=== PATIENT | female | born 1955 | race Caucasian/White ===

== ENCOUNTER → 2017-09-21 | Outpatient (CLI) | payer OTHER ==
[~2017-09-21] MED LIST: ANASPAZ0.125 MG OR; ANTIOXIDANT FO1 EACH PO; ASPIR 8181 MG PO; ASPIRIN EC325 MG PO; BELBUCA75 MCG BC; CARVEDILOL12.5 MG OR; CARVEDILOL12.5 MG PO; CELEBREX 200 M200 MG PO; COLACE 100 MG100 MG PO; COMBIVENT INH; COZAAR 25 MG TA25 M2 PO; CREON DR 36,001 EACH PO; DIOVAN HCT 1601 EACH OR; DULCOLAX; DULCOLAX5 MG PO; FLEXERIL PO; FLONASE 0.05%50 MCG NASAL; GILPIZIDE; HUMALOG100 UNIT/2 SUBQ; HYDROCODON-ACE1 EACH PO; HYZAAR 50-12.51 TAB PO; JANUVIA100 MG OR; KLOR-CON OR; LANTUS SOL100 UNIT/1 SUBQ; LANTUSSOLASTAR SQ; LASIX 20 MG TAB20 MG OR; LASIX 20 MG TAB20 MG PO; LOPERAMIDE 2 MG2 M1 PO; LORAZEPAM 1 MG T1 MG PO; LORAZEPAM 2MG TA2 M1 PO; LORTAB 5-325 M1 EACH PO; METFORMIN HCL500 MG PO; MINOCYCLINE HC100 M2 PO; MORPHINE SULFAT15 M1 OR; MORPHINE SULFAT15 M3 PO; MORPHINE SULFAT15 M4 PO; MS CONTIN15 MG PO; MYCOBUTIN150 MG PO; NASONEX17 GM IH; NASONEX17 GM NS; NEURONTIN 300300 M1 PO; NEURONTIN600 MG OR; NEURONTIN600 MG PO; OXYCODONE HCL 55 MG PO; PAROXETINE HCL40 MG PO; PAXIL20 MG PO; PAXIL40 MG OR; POTASSIUM GLUCONATE PO; POTASSIUM20 PO; PROTONIX40 M2 OR; PROTONIX40 M2 PO; SAM-E200 MG PO; SINGULAIR 10 MG10 M1 OR; SINGULAIR 10 MG10 M1 PO; SYMBICORT160 MCG/4.; SYMBICORT160 MCG/4. INH; TIZANIDINE HCL4 MG PO; TOUJEO SOL300 UNIT/1 SUBQ; VITAMIN D 5050000 I1; VITAMIN D35000 UNIT PO; WELLBUTRIN 100100 MG PO; WELLBUTRIN SR150 MG OR; XARELTO10 MG PO; ZENPEP DR 10,01 EACH OR; ZENPEP DR 20,01 EACH OR; ZENPEP DR 5,001 EACH PO; ZOCOR 20 MG TAB20 M1 OR; [UNRECOGNIZED DRUG - OTHER] SQ
--- NOTE | 2017-09-29 11:16 | SLEEP ---
[address] [address] SLEEP STUDY REPORT Name: SHELBY COTTER Room: [facility]#: [id number] Admission: 09/21/17 Attend Phys: Tony Barbosa MD Discharge: Date of : 57 Report #: [id number] THIS REPORT FOR: //name// CC: Tony Dodge This study has been reviewed in its entirety by a board certified sleep specialist DATE OF SERVICE: 09/21/2017 TYPE OF STUDY: Split night study. REFERRING PHYSICIAN: Tony Barbosa MD INDICATION: Known obstructive sleep apnea. METHOD: The following parameters were monitored: Frontal, central and occipital EEG; electro-oculogram; submentalis EMG; nasal and oral airflow; anterior tibialis EMG, body position and electrocardiogram. Additionally, thoracic and abdominal movements were recorded by inductance plethysmography. Oxygen saturation was monitored using pulse oximeter. The tracing was scored using 30-second epochs. Hypopneas were scored using the 4% desaturation criteria. This was a split night study. DIAGNOSTIC PORTION OF THE STUDY: Total recording time was 158 minutes. Total sleep time was 72 minutes. Sleep efficiency was low at 45.9%. SLEEP STAGING: During the diagnostic portion of the study, no REM or N3 was recorded. 69.7% total sleep time was in N1 and 30.3% in stage 2. During the diagnostic portion of the study, the patient had 39 hypopneas. No apneas with overall apnea-hypopnea index of 32.3. The average heart rate was 78.6 minutes. No arrhythmias were reported. The limb movement index was 165.5. The average O2 saturation during the diagnostic portion of the study was 93% with the lowest O2 saturation reported to be 86%. TITRATION PORTION OF THE STUDY: During the titration portion of the study, the patient was titrated on a pressure 5, 7, 9, 11, 12, 13, 14, 15, 16 and 18 cm of water. At level of 18 cm of water, the patient was captured briefly during supine REM sleep. The overall apnea-hypopnea index at this level was 1.3. The lowest O2 saturation recorded was 87%. IMPRESSION: Severe obstructive sleep apnea with apnea-hypopnea index of 32.2, [place] [address] SLEEP STUDY REPORT Name: SHELBY COTTER Room: [facility]#: [id number] Admission: 09/21/17 Attend Phys: Tony Barbosa MD Discharge: Date of : 57 Report #: [id number] oxygen saturation to a dorys of 87%. RECOMMENDATIONS: 1. Trial of CPAP therapy at a pressure of 18 cm of water with close clinical followup and data download. 2. Recommend avoiding sleep in supine position. 3. Avoid alcohol, hypnotics, narcotics close to bedtime. 4. Recommend maintaining ideal body weight. <ELECTRONICALLY SIGNED> By: Tony Barbosa MD 09/29/17 1116 1157 [id number] Barbosa MD /mychal
== END ==
LOC: M.SLEEPLAB 20:16
DX: G47.33 Obstructive sleep apnea (adult) (pediatric) (principal)

== ENCOUNTER → 2017-10-16 | Outpatient (CLI) | payer OTHER | LOC: M.CT 07:24 | DX: I70.0 Atherosclerosis of aorta (principal); I25.10 Atherosclerotic heart disease of native coronary artery without angina pectoris; K76.0 Fatty (change of) liver, not elsewhere classified; K86.3 Pseudocyst of pancreas; Z90.49 Acquired absence of other specified parts of digestive tract ==

== ENCOUNTER → 2017-11-03 | Outpatient (CLI) | payer OTHER ==
[2017-11-03 12:35] LABS: ABSOLUTE BASOPHILS 0.1 thou/uL (0.0-0.2); ABSOLUTE EOSINOPHILS 0.2 thou/uL (0.0-0.7); ABSOLUTE LYMPHOCYTES 2.2 thou/uL (0.8-5.3); ABSOLUTE MONOCYTES 0.7 thou/uL (0.0-1.2); ABSOLUTE NEUTROPHILS 6.2 thou/uL (1.6-8.1); BASOPHILS 1.2 %; EOSINOPHILS 1.9 %; HEMATOCRIT 41.5 % (37.0-47.0); HEMOGLOBIN 14.2 gm/dL (12.0-15.0); LYMPHOCYTES 23.8 %; MCH 30.6 pg (26.0-34.0); MCHC 34.1 g/dL (28.0-37.0); MCV 89.9 fL (80.0-100.0); MONOCYTES 7.1 %; MPV 8.3 fl. (7.2-11.1); NUCLEATED RBCS 0 /100WBC; PLATELET COUNT* 221 thou/uL (150-400); RBC 4.62 mil/uL (4.20-5.00); RDW-CV 13.5 % (10.5-14.5); WBC 9.3 thou/uL (4.0-11.0)
[2017-11-03 12:49] LABS: ALBUMIN 3.5 g/dL (3.4-5.0); CALCIUM 8.8 mg/dL (8.5-10.1); CREATININE 0.8 mg/dL (0.6-1.3); POTASSIUM 4.2 mmol/L (3.5-5.1); TOTAL BILIRUBIN 0.6 mg/dL (<0.1-1.0); TOTAL PROTEIN 7.3 g/dL (6.4-8.2)
== END ==
LOC: M.CT 12:01 → M.LAB 12:01 → M.CT 13:00
PROVIDERS: Internal Medicine
DX: C34.11 Malignant neoplasm of upper lobe, right bronchus or lung (principal)

== ENCOUNTER → 2017-11-03 | Outpatient (CLI) | payer OTHER ==
--- NOTE | ~2017-11-03 | CON ---
[address] [address] CONSULTATION Name: SHELBY COTTER Room: [facility]#: [id number] Admission: 11/03/17 Attend Phys: Yash Jeter MD Discharge: Date of : 57 Report #: [id number] THIS REPORT FOR: //name// CC: Betty Jeter DATE OF SERVICE: 11/03/2017 REASON FOR CONSULTATION: Newly diagnosed lung cancer, non-small cell adenocarcinoma. REFERRING PHYSICIAN: Tony Barbosa MD. SUBJECTIVE: A 61-year-old. DICTATION ENDS HERE. By: 1139 1909Yash Jeter MD /nt
--- NOTE | 2017-11-17 09:07 | CON ---
[address] [address] CONSULTATION Name: SHELBY COTTER Room: [facility]#: [id number] Admission: 11/03/17 Attend Phys: Yash Jeter MD Discharge: Date of : 57 Report #: [id number] THIS REPORT FOR: //name// CC: Betty Jeter DATE OF SERVICE: 11/03/2017 This is a consult as an outpatient. LOCATION: Hematology/Oncology Clinic. DIAGNOSIS: Adenocarcinoma, nonsmall cell lung cancer. REFERRING PHYSICIAN: Tony Barbosa MD. SUBJECTIVE: A 61-year-old female who was evaluated recently because of progressive shortness of breath and she underwent CT scan of the chest with contrast, which showed no pulmonary embolism; however, there was a 2.1 cm mass in the right upper lobe. Also, there was a small nodule around 9 mm on the left side. The patient underwent a CT-guided biopsy on 10/19/2017, which showed adenocarcinoma with lepidic growth patterns. EGFR and ALK were negative. PD-L1 was high expression 70%. REVIEW OF SYSTEMS: All system reviewed. It was negative except above. PAST MEDICAL HISTORY: Hypertension, benign essential. Irregular heartbeat, diabetes mellitus, sleep apnea, COPD, GERD, osteoarthritis, osteoporosis, anxiety/depression. PAST SURGICAL HISTORY: None per the patient. FAMILY HISTORY: A half-sister with a lung cancer. SOCIAL HISTORY: She is an active smoker, 1 pack per day since the age of 19. MEDICATIONS: Paxil 40 mg p.o. daily, Hyzaar 200/25 mg p.o. daily, lorazepam 1 mg p.o. daily, Tresiba 200 units subcutaneously, furosemide 20 mg p.o. daily, aspirin 81 mg p.o. daily, Advair HFA 2 puffs twice a day, gabapentin 300 mg p.o. daily, fluticasone 50 mcg 1 spray daily, montelukast 10 mg p.o. daily, Carvedilol 12.5 mg p.o. daily, Creon 36,000 units p.o. daily, metformin 500 mg p.o. daily, tramadol 50 mg q.6h., potassium p.o. daily. PHYSICAL EXAMINATION: VITAL SIGNS: Today, temperature is , pulse 83, respirations 20, saturation is 97% on room air, blood pressure is 154/82. [place] [address] CONSULTATION Name: SHELBY COTTER Room: [facility]#: [id number] Admission: 11/03/17 Attend Phys: Yash Jeter MD Discharge: Date of : 57 Report #: [id number] GENERAL: The patient was sitting in a chair. She was not in acute distress. HEENT: Decreased breathing sounds bilaterally. HEART: Regular rate and rhythm. S1, S2 within normal limits. ABDOMEN: Soft, nontender, nondistended. Bowel sounds positive. EXTREMITIES: +1 edema bilaterally. IMAGING: CTA as mentioned above. The patient had a recent CT scan of the abdomen on 10/16/[address] scan findings to explain epigastric pain; however, there was a pancreatic body cystic lesion 1.7. The patient has diffuse hepatic steatosis, coronary artery calcification, prior cholecystectomy. The patient had an EUS with Dr. Mathis yesterday. The EUS showed a cystic lesion. FNA is pending for today. PATHOLOGY: Right upper lobe CT-guided needle biopsy showed adenocarcinoma. ASSESSMENT AND PLAN: A 61-year-old female with multiple comorbidities including diabetes mellitus, hypertension, chronic obstructive pulmonary disease. ECOG performance status of 2, presented with clinical stage T1N0M0 of adenocarcinoma. ALK EGFR negative, PD-L1 70% high expression. RECOMMENDATIONS: I would like to request a PET/CT scan to complete staging. The patient had 9 mm nodules in the left side. Also, we will complete a brain imaging by CT scan with and without contrast, the patient cannot have an MRI due to titanium clips. The patient will be presented at the lung cancer conference. Treatment option will be based on the PET/CT scan including surgery or SBRT. Otherwise, if she has widespread metastases, I recommend immunotherapy with Keytruda every 3 weeks. We will notify the patient with tumor board recommendations. <ELECTRONICALLY SIGNED> By: Yash Jeter MD 11/17/17 0907 1153 1930Yash Jeter MD /nt
== END ==
LOC: M.RTH 03:52
DX: C34.90 Malignant neoplasm of unspecified part of unspecified bronchus or lung (principal); E11.9 Type 2 diabetes mellitus without complications; I10 Essential (primary) hypertension; J44.9 Chronic obstructive pulmonary disease, unspecified

== ENCOUNTER 2018-07-16 18:39 | Emergency (ER) | payer OTHER ==
[~2018-07-16] VITALS: Ht 157.5 cm; Wt 95.3 kg
[2018-07-16] MEDS ORDERED: LOPRESSOR50 PO (18:48)
[2018-07-16] MEDS ORDERED: CLEOCIN HCL300 MG PO (20:13)
[2018-07-16] MEDS ORDERED: ROXICODONE5 MG PO (20:13)
[2018-07-16 20:36] VITALS: BP 137/90
== END 2018-07-16 20:36 | disposition home or self-care (01) ==
LOC: M.ERS 18:39
DX: S61.216A Laceration without foreign body of right little finger without damage to nail, initial encounter (principal); S61.210A Laceration without foreign body of right index finger without damage to nail, initial encounter; F32.9 Major depressive disorder, single episode, unspecified; E11.9 Type 2 diabetes mellitus without complications; K76.0 Fatty (change of) liver, not elsewhere classified; E78.00 Pure hypercholesterolemia, unspecified; G47.30 Sleep apnea, unspecified; M19.90 Unspecified osteoarthritis, unspecified site; F17.210 Nicotine dependence, cigarettes, uncomplicated; Z90.49 Acquired absence of other specified parts of digestive tract; Z86.14 Personal history of Methicillin resistant Staphylococcus aureus infection; Z90.710 Acquired absence of both cervix and uterus; Z85.118 Personal history of other malignant neoplasm of bronchus and lung; Z79.4 Long term (current) use of insulin; Z88.0 Allergy status to penicillin; Z88.8 Allergy status to other drugs, medicaments and biological substances; Z88.5 Allergy status to narcotic agent; W54.0XXA Bitten by dog, initial encounter; Y93.89 Activity, other specified; Y92.89 Other specified places as the place of occurrence of the external cause; Y99.8 Other external cause status

== ENCOUNTER 2020-09-01 16:49 | Observation (INO) | payer OTHER ==
[~2020-09-01] VITALS: Ht 160 cm; Wt 93.9 kg
[~2020-09-01 16:49] MED LIST changes: +CLEOCIN HCL300 MG PO; +LOPRESSOR50 PO; +ROXICODONE5 MG PO
[2020-09-01 17:00] VITALS: BP 161/77
[2020-09-01] MEDS ORDERED: CARVEDILOL12.5 MG PO (17:00)
[2020-09-01] MEDS ORDERED: NORCO5 PO (17:02)
[2020-09-01] MEDS ORDERED: TRIAMTERENE-HC1 EAC3 PO (17:02)
[2020-09-01] MEDS ORDERED: PROAIR HFA8.5 GM INH (17:03)
[2020-09-01] MEDS ORDERED: ASA81BEC PO (17:03)
[2020-09-01] MEDS ORDERED: ABILIFY 5 MG TAB5 M1 PO (17:03)
[2020-09-01] MEDS ORDERED: CLONAZEPAM 0.50.5 M1 PO (17:04)
[2020-09-01] MEDS ORDERED: CETIRIZINE HCL5 MG PO (17:04)
[2020-09-01] MEDS ORDERED: CREON DR 36,001 EACH PO (17:05)
[2020-09-01] MEDS ORDERED: HUMALOG100 UNIT/1 SUBQ (17:06)
[2020-09-01] MEDS ORDERED: ARNUITY ELLIPT50 MCG NARES (17:06)
[2020-09-01] MEDS ORDERED: ADVAIR HFA 230M12 GM INH (17:06)
[2020-09-01] MEDS ORDERED: NEURONTIN 300M300 M2 PO (17:06)
[2020-09-01] MEDS ORDERED: METFORMIN HCL500 M3 PO (17:07)
[2020-09-01] MEDS ORDERED: METANX CAPSULE1 EACH PO (17:07)
[2020-09-01] MEDS ORDERED: TRAMADOL 50 MG50 MG PO (17:07)
[2020-09-01] MEDS ORDERED: MELATONIN5 MG PO (17:07)
[2020-09-01] MEDS ORDERED: TRIAMTERENE/HCT1 CA1 (17:08)
[2020-09-01] MEDS ORDERED: TRESIBA FL200 UNIT/1 SUBQ (17:08)
[2020-09-01] MEDS ORDERED: VITAMIN D310 MC2 PO (17:09)
[2020-09-01 17:47] LABS: ABSOLUTE BASOPHILS 0.1 thou/uL (0.0-0.2); ABSOLUTE EOSINOPHILS 0.2 thou/uL (0.0-0.7); ABSOLUTE LYMPHOCYTES 1.4 thou/uL (0.8-5.3); ABSOLUTE MONOCYTES 0.5 thou/uL (0.0-1.2); ABSOLUTE NEUTROPHILS 5.8 thou/uL (1.6-8.1); BASOPHILS 0.8 %; EOSINOPHILS 2.5 %; HEMATOCRIT 40.7 % (37.0-47.0); HEMOGLOBIN 14.3 gm/dL (12.0-15.0); LYMPHOCYTES 17.6 %; MCH 30.8 pg (26.0-34.0); MCHC 35.1 g/dL (28.0-37.0); MCV 87.8 fL (80.0-100.0); MONOCYTES 6.5 %; MPV 7.7 fl. (7.2-11.1); NUCLEATED RBCS 0 /100WBC; PLATELET COUNT* 228 thou/uL (150-400); POLYS 72.6 %; RBC 4.63 mil/uL (4.20-5.00); RDW-CV 13.6 % (10.5-14.5); WBC 7.9 thou/uL (4.0-11.0)
[2020-09-01 17:56] LABS: CALCIUM 8.7 mg/dL (8.5-10.1); CREATININE 0.7 mg/dL (0.6-1.3); POTASSIUM 3.6 mmol/L (3.5-5.1)
[2020-09-01 17:59] LABS: APTT 24.3 Seconds (25.0-31.3); PROTIME 10.4 Seconds (9.20-11.50)
[2020-09-01 18:06] LABS: ALBUMIN 3.6 g/dL (3.4-5.0); MAGNESIUM 1.9 mg/dL (1.8-2.4); TOTAL BILIRUBIN 0.8 mg/dL (<0.1-1.0); TOTAL PROTEIN 7.2 g/dL (6.4-8.2)
[2020-09-01 19:41] VITALS: BP 145/81
[2020-09-01 20:15] VITALS: BP 140/69
[2020-09-01 23:36] VITALS: BP 129/54
[2020-09-02 03:55] VITALS: BP 136/80
[2020-09-02 04:25] LABS: HEMATOCRIT 39.3 % (37.0-47.0); HEMOGLOBIN 13.7 gm/dL (12.0-15.0); MCH 30.8 pg (26.0-34.0); MCHC 34.8 g/dL (28.0-37.0); MCV 88.7 fL (80.0-100.0); MPV 7.9 fl. (7.2-11.1); RBC 4.43 mil/uL (4.20-5.00); RDW-CV 13.9 % (10.5-14.5)
[2020-09-02 04:47] LABS: CALCIUM 9.4 mg/dL (8.5-10.1); CREATININE 0.6 mg/dL (0.6-1.3); POTASSIUM 3.6 mmol/L (3.5-5.1)
[2020-09-02 10:59] VITALS: BP 144/75
[2020-09-02 11:48] VITALS: BP 144/75
--- NOTE | 2020-09-02 11:57 | EKG ---
[place] [address] ELECTROCARDIOGRAM REPORT Name: SHELBY COTTER Room: [address]#: [id number] Admission: 09/01/20 Attend Phys: Queenie Ramirez MD Discharge: Date of : 57 Date of Service: 09/01/20 1657 Report #: [id number] THIS REPORT FOR: //name// [facility] ED Test Date: 2020-09-01 Test Time: 16:57:23 Pat Name: SHELBY COTTER Department: Room: [facility] Gender: F Supervisor Chemical: JULIA : 1955 Requested By: Miguel A Bah Order Number: [id number] MD: Bandar Sahu Measurements Intervals [place] Rate: 96 P: 71 RI: 158 QRS: 70 QRSD: 88 T: 69 QT: 357 QTc: 452 Interpretive Statements Sinus rhythm Multiple ventricular premature complexes Biatrial enlargement Minimal ST elevation, inferior leads Baseline wander in lead(s) V5 Compared to ECG 12/25/2014 09:36:54 Ventricular premature complex(es) now present Atrial abnormality now present ST (T wave) deviation now present Electronically Signed On 09-02-2020 11:57:33 [employer] by Bandar Sahu [email or web address] <ELECTRONICALLY SIGNED> By: Emiliano Sahu MD, [facility] 09/02/20 1157 56 57 Emiliano Sahu MD, [facility] /EPI
== END 2020-09-02 13:22 | disposition home or self-care (01) ==
LOC: M.ERS 16:49 → M.TBA-ER 18:42 → M.2W 20:44
PROVIDERS: Emergency Medicine Emergency Medical Services; ADMIT Family Medicine; ATTEND Family Medicine
DX: R06.00 Dyspnea, unspecified (principal); R07.89 Other chest pain; Z20.822 Contact with and (suspected) exposure to COVID-19; I10 Essential (primary) hypertension; J44.9 Chronic obstructive pulmonary disease, unspecified; E78.5 Hyperlipidemia, unspecified; F41.9 Anxiety disorder, unspecified; R11.2 Nausea with vomiting, unspecified; R05 Cough; F32.9 Major depressive disorder, single episode, unspecified; E11.9 Type 2 diabetes mellitus without complications; E78.00 Pure hypercholesterolemia, unspecified; M19.90 Unspecified osteoarthritis, unspecified site; F17.210 Nicotine dependence, cigarettes, uncomplicated; Z90.49 Acquired absence of other specified parts of digestive tract; Z85.118 Personal history of other malignant neoplasm of bronchus and lung; Z88.5 Allergy status to narcotic agent; Z88.8 Allergy status to other drugs, medicaments and biological substances; Z88.0 Allergy status to penicillin; Z79.84 Long term (current) use of oral hypoglycemic drugs; Z79.82 Long term (current) use of aspirin; Z79.899 Other long term (current) drug therapy

== ENCOUNTER → 2020-09-20 | Outpatient (CLI) | payer OTHER ==
[~2020-09-20] MED LIST changes: +ABILIFY 5 MG TAB5 M1 PO; +ADVAIR HFA 230M12 GM INH; +ARNUITY ELLIPT50 MCG NARES; +ASA81BEC PO; +CETIRIZINE HCL5 MG PO; +CLONAZEPAM 0.50.5 M1 PO; +HUMALOG100 UNIT/1 SUBQ; +MEDROLDOSEPACK PO; +MELATONIN5 MG PO; +METANX CAPSULE1 EACH PO; +METFORMIN HCL500 M3 PO; +NEURONTIN 300M300 M2 PO; +NORCO5 PO; +PERCOCET 5-3251 EACH PO; +PERCOCET 7.5-31 EACH PO; +PROAIR HFA8.5 GM INH; +TRAMADOL 50 MG50 MG PO; +TRESIBA FL200 UNIT/1 SUBQ; +TRIAMTERENE-HC1 EAC3 PO; +TRIAMTERENE/HCT1 CA1; +VITAMIN D310 MC2 PO
== END ==
LOC: M.PC 10:27
PROVIDERS: ATTEND Anesthesiology Pain Medicine
DX: E11.9 Type 2 diabetes mellitus without complications (principal); E78.00 Pure hypercholesterolemia, unspecified; G47.30 Sleep apnea, unspecified; M19.90 Unspecified osteoarthritis, unspecified site; E78.5 Hyperlipidemia, unspecified; F41.9 Anxiety disorder, unspecified; F32.9 Major depressive disorder, single episode, unspecified; F17.200 Nicotine dependence, unspecified, uncomplicated; Z79.891 Long term (current) use of opiate analgesic; Z79.899 Other long term (current) drug therapy; Z88.0 Allergy status to penicillin; Z88.8 Allergy status to other drugs, medicaments and biological substances; Z98.1 Arthrodesis status; Z79.4 Long term (current) use of insulin; Z90.49 Acquired absence of other specified parts of digestive tract; Z85.118 Personal history of other malignant neoplasm of bronchus and lung; Z92.3 Personal history of irradiation; Z92.21 Personal history of antineoplastic chemotherapy; Z68.35 Body mass index [BMI] 35.0-35.9, adult

== ENCOUNTER → 2020-11-22 | Outpatient (CLI) | payer OTHER ==
[~2020-11-22] MED LIST changes: +BACLOFEN 10MG T10 MG PO
== END ==
LOC: M.PC 10:15
PROVIDERS: ATTEND Anesthesiology Pain Medicine
DX: E11.9 Type 2 diabetes mellitus without complications (principal); E78.5 Hyperlipidemia, unspecified; F41.9 Anxiety disorder, unspecified; F32.9 Major depressive disorder, single episode, unspecified; F17.200 Nicotine dependence, unspecified, uncomplicated; R20.0 Anesthesia of skin; K76.0 Fatty (change of) liver, not elsewhere classified; I67.1 Cerebral aneurysm, nonruptured; E78.00 Pure hypercholesterolemia, unspecified; I10 Essential (primary) hypertension; M77.8 Other enthesopathies, not elsewhere classified; G47.30 Sleep apnea, unspecified; M19.90 Unspecified osteoarthritis, unspecified site; C34.11 Malignant neoplasm of upper lobe, right bronchus or lung; Z90.49 Acquired absence of other specified parts of digestive tract; Z98.890 Other specified postprocedural states

== ENCOUNTER → 2020-12-10 | Outpatient (CLI) | payer OTHER ==
[2020-12-10 11:38] LABS: ALBUMIN 3.4 g/dL (3.4-5.0); CALCIUM 8.5 mg/dL (8.5-10.1); CREATININE 0.8 mg/dL (0.6-1.3); MAGNESIUM 1.5 mg/dL (1.8-2.4); POTASSIUM 3.6 mmol/L (3.5-5.1); TOTAL BILIRUBIN 0.5 mg/dL (<0.1-1.0); TOTAL PROTEIN 7.2 g/dL (6.4-8.2)
== END ==
LOC: M.LAB 11:09
PROVIDERS: ATTEND Registered Nurse
DX: I47.1 Supraventricular tachycardia (principal)

== ENCOUNTER → 2020-12-20 | Outpatient (CLI) | payer OTHER | LOC: M.PC 09:00 | PROVIDERS: ATTEND Anesthesiology Pain Medicine | DX: G89.29 Other chronic pain (principal); E11.9 Type 2 diabetes mellitus without complications; E78.5 Hyperlipidemia, unspecified; M19.90 Unspecified osteoarthritis, unspecified site; M46.02 Spinal enthesopathy, cervical region; I10 Essential (primary) hypertension; K76.0 Fatty (change of) liver, not elsewhere classified; K86.1 Other chronic pancreatitis; G47.30 Sleep apnea, unspecified; F41.8 Other specified anxiety disorders; F17.200 Nicotine dependence, unspecified, uncomplicated; Z90.49 Acquired absence of other specified parts of digestive tract; Z90.710 Acquired absence of both cervix and uterus; Z98.1 Arthrodesis status; Z98.890 Other specified postprocedural states; Z68.34 Body mass index [BMI] 34.0-34.9, adult; Z88.0 Allergy status to penicillin; Z88.5 Allergy status to narcotic agent; Z88.8 Allergy status to other drugs, medicaments and biological substances; Z79.891 Long term (current) use of opiate analgesic; Z79.899 Other long term (current) drug therapy; Z85.118 Personal history of other malignant neoplasm of bronchus and lung; Z92.21 Personal history of antineoplastic chemotherapy; Z92.3 Personal history of irradiation ==

== ENCOUNTER → 2020-12-25 | Outpatient (CLI) | payer OTHER ==
[2020-12-25 10:35] LABS: CALCIUM 8.9 mg/dL (8.5-10.1); CREATININE 0.7 mg/dL (0.6-1.3); POTASSIUM 3.8 mmol/L (3.5-5.1)
== END ==
LOC: M.LAB 10:11
PROVIDERS: ATTEND Registered Nurse
DX: I10 Essential (primary) hypertension (principal)

== ENCOUNTER → 2021-01-17 | Outpatient (CLI) | payer OTHER ==
[~2021-01-17] MED LIST changes: +COZAAR 25 MG TA25 M1 PO; +TRELEGY ELLIPT1 EACH INH
== END ==
LOC: M.PC 10:47
PROVIDERS: ATTEND Anesthesiology Pain Medicine
DX: E11.9 Type 2 diabetes mellitus without complications (principal); E78.5 Hyperlipidemia, unspecified; F41.9 Anxiety disorder, unspecified; F32.9 Major depressive disorder, single episode, unspecified; R20.0 Anesthesia of skin; K76.0 Fatty (change of) liver, not elsewhere classified; E78.00 Pure hypercholesterolemia, unspecified; R03.0 Elevated blood-pressure reading, without diagnosis of hypertension; M46.02 Spinal enthesopathy, cervical region; K86.1 Other chronic pancreatitis; G47.30 Sleep apnea, unspecified; M19.90 Unspecified osteoarthritis, unspecified site; J44.9 Chronic obstructive pulmonary disease, unspecified; Z98.890 Other specified postprocedural states; Z90.49 Acquired absence of other specified parts of digestive tract; Z98.1 Arthrodesis status; Z87.891 Personal history of nicotine dependence; Z92.21 Personal history of antineoplastic chemotherapy

== ENCOUNTER → 2021-02-14 | Outpatient (CLI) | payer OTHER | LOC: M.PC 10:46 | PROVIDERS: ATTEND Anesthesiology Pain Medicine | DX: E11.9 Type 2 diabetes mellitus without complications (principal); E78.5 Hyperlipidemia, unspecified; F41.9 Anxiety disorder, unspecified; F32.9 Major depressive disorder, single episode, unspecified; R20.0 Anesthesia of skin; K76.0 Fatty (change of) liver, not elsewhere classified; I10 Essential (primary) hypertension; M77.8 Other enthesopathies, not elsewhere classified; K86.1 Other chronic pancreatitis; G47.30 Sleep apnea, unspecified; M19.90 Unspecified osteoarthritis, unspecified site; L02.31 Cutaneous abscess of buttock; Z72.0 Tobacco use; Z90.710 Acquired absence of both cervix and uterus; Z98.890 Other specified postprocedural states ==

== ENCOUNTER → 2021-03-14 | Outpatient (CLI) | payer OTHER | LOC: M.PC 11:15 | PROVIDERS: ATTEND Anesthesiology Pain Medicine | DX: G89.29 Other chronic pain (principal); M54.5 Low back pain; E11.9 Type 2 diabetes mellitus without complications; E78.00 Pure hypercholesterolemia, unspecified; F32.89 Other specified depressive episodes; K76.0 Fatty (change of) liver, not elsewhere classified; K86.1 Other chronic pancreatitis; G47.30 Sleep apnea, unspecified; M19.90 Unspecified osteoarthritis, unspecified site; Z90.49 Acquired absence of other specified parts of digestive tract; Z85.118 Personal history of other malignant neoplasm of bronchus and lung; Z88.8 Allergy status to other drugs, medicaments and biological substances; Z79.4 Long term (current) use of insulin; Z79.899 Other long term (current) drug therapy ==

== ENCOUNTER → 2021-04-11 | Outpatient (CLI) | payer OTHER ==
[~2021-04-11] MED LIST changes: +ADVAIR 250-501 EACH INH; +PAXIL PO
== END ==
LOC: M.PC 11:07
PROVIDERS: ATTEND Anesthesiology Pain Medicine
DX: M54.50 Low back pain, unspecified (principal); M48.00 Spinal stenosis, site unspecified; E11.9 Type 2 diabetes mellitus without complications; E78.5 Hyperlipidemia, unspecified; F41.8 Other specified anxiety disorders; K76.0 Fatty (change of) liver, not elsewhere classified; K86.1 Other chronic pancreatitis; G47.00 Insomnia, unspecified; M19.90 Unspecified osteoarthritis, unspecified site; Z90.49 Acquired absence of other specified parts of digestive tract; Z96.659 Presence of unspecified artificial knee joint; Z79.4 Long term (current) use of insulin; Z79.82 Long term (current) use of aspirin; Z88.0 Allergy status to penicillin; Z88.8 Allergy status to other drugs, medicaments and biological substances; Z79.899 Other long term (current) drug therapy; F17.200 Nicotine dependence, unspecified, uncomplicated

== ENCOUNTER → 2021-05-09 | Outpatient (CLI) | payer OTHER | LOC: M.PC 11:20 | PROVIDERS: ATTEND Anesthesiology Pain Medicine | DX: M48.061 Spinal stenosis, lumbar region without neurogenic claudication (principal); E11.9 Type 2 diabetes mellitus without complications; E78.5 Hyperlipidemia, unspecified; F41.8 Other specified anxiety disorders; K76.0 Fatty (change of) liver, not elsewhere classified; E78.00 Pure hypercholesterolemia, unspecified; G47.30 Sleep apnea, unspecified; M19.91 Primary osteoarthritis, unspecified site; K86.1 Other chronic pancreatitis; Z90.49 Acquired absence of other specified parts of digestive tract; F17.290 Nicotine dependence, other tobacco product, uncomplicated; Z88.0 Allergy status to penicillin; Z88.8 Allergy status to other drugs, medicaments and biological substances; Z79.82 Long term (current) use of aspirin; Z79.4 Long term (current) use of insulin; Z79.84 Long term (current) use of oral hypoglycemic drugs; Z79.899 Other long term (current) drug therapy ==

== ENCOUNTER → 2021-06-06 | Outpatient (CLI) | payer OTHER ==
[~2021-06-06] MED LIST changes: +PAXIL40 MG PO
== END ==
LOC: M.PC 11:30
PROVIDERS: ATTEND Anesthesiology Pain Medicine
DX: E11.9 Type 2 diabetes mellitus without complications (principal); E78.5 Hyperlipidemia, unspecified; F41.9 Anxiety disorder, unspecified; F17.200 Nicotine dependence, unspecified, uncomplicated; F32.9 Major depressive disorder, single episode, unspecified; K76.0 Fatty (change of) liver, not elsewhere classified; R03.0 Elevated blood-pressure reading, without diagnosis of hypertension; G47.30 Sleep apnea, unspecified; M19.90 Unspecified osteoarthritis, unspecified site; Z90.49 Acquired absence of other specified parts of digestive tract; Z98.890 Other specified postprocedural states; Z98.1 Arthrodesis status

== ENCOUNTER → 2021-07-04 | Outpatient (CLI) | payer OTHER | LOC: M.PC 11:00 | PROVIDERS: ATTEND Anesthesiology Pain Medicine | DX: E11.9 Type 2 diabetes mellitus without complications (principal); M54.50 Low back pain, unspecified; M48.00 Spinal stenosis, site unspecified; E78.5 Hyperlipidemia, unspecified; K76.0 Fatty (change of) liver, not elsewhere classified; E78.00 Pure hypercholesterolemia, unspecified; G47.30 Sleep apnea, unspecified; K86.1 Other chronic pancreatitis; Z90.49 Acquired absence of other specified parts of digestive tract; F41.9 Anxiety disorder, unspecified; Z72.0 Tobacco use; F17.200 Nicotine dependence, unspecified, uncomplicated; Z88.0 Allergy status to penicillin; Z88.8 Allergy status to other drugs, medicaments and biological substances; Z79.4 Long term (current) use of insulin; Z79.899 Other long term (current) drug therapy ==

== ENCOUNTER → 2021-08-01 | Outpatient (CLI) | payer OTHER | LOC: M.PC 11:06 | PROVIDERS: ATTEND Anesthesiology Pain Medicine | DX: M54.50 Low back pain, unspecified (principal); E11.9 Type 2 diabetes mellitus without complications; E78.5 Hyperlipidemia, unspecified; Z72.0 Tobacco use; K76.0 Fatty (change of) liver, not elsewhere classified; E78.00 Pure hypercholesterolemia, unspecified; K86.1 Other chronic pancreatitis; G47.30 Sleep apnea, unspecified; Z90.49 Acquired absence of other specified parts of digestive tract; Z88.0 Allergy status to penicillin; Z88.8 Allergy status to other drugs, medicaments and biological substances; Z79.899 Other long term (current) drug therapy; Z79.4 Long term (current) use of insulin ==